=== PATIENT | female | born 1995 | race Two or more races ===

== ENCOUNTER 2019-11-20 02:32 | Inpatient (IN) | payer MEDICAID ==
[2019-11-20] MEDS ORDERED: ceFAZolin 2 GM in Premix Bag 1 BAG IV ONE (02:50)
[2019-11-20] MEDS ORDERED: Sodium Chloride 0.9% 10 ML Syringe FLUSH PRN (02:50)
--- NOTE | 2019-11-20 06:01 | PCM.OPNOTE ---
- General Post-Op/Procedure Note Date of Surgery/Procedure: 11/20/19 Operative Procedure(s): Repeat low transverse Findings: Minimal scar tissue between the rectus and fascia. Minimal scar between uterus and bladder. Baby girl in VTX presentation. Normal appearance of uterus, fallopian tubes, and ovaries. Pre Op Diagnosis: 39 6/7 wks. Prior . Unstable lie Post-Op Diagnosis: Same Anesthesia Technique: Spinal Primary Surgeon: Cori Perrin Secondary Surgeon: Taylor Poole Anesthesia Provider: John Bourgeois Reason Drop Forger Was Necessary: BMI of patient. Speed/safety of procedure Pathology: Cord blood collected. Placenta discarded. Fluid Replacement, Intraop: 1,300 Output, Urine Amount: 100 EBL in mLs: 800 Complications: None Condition: Good Free Text/Narrative:: The risks, benefits, indications, potential complications, and alternatives were explained to the patient and informed consent obtained. After induction of anesthesia, the patient was placed in a supine position and then draped and prepped in the usual sterile manner. A Pfannenstiel incision was made and carried down through the subcutaneous tissue to the fascia. Fascial incision was made and extended transversely. The fascia was from the underlying rectus tissue superiorly and inferiorly. The peritoneum was identified and entered. Peritoneal incision was extended longitudinally. The utero-vesical peritoneal reflection was incised transversely and the bladder flap was bluntly freed from the lower uterine segment. A low transverse uterine incision was made sharply with a scalpel and extended bluntly in a cephalocaudad direction. A baby girl was delivered from a vertex presentation with APGARS as above. After the umbilical cord was clamped and cut cord blood was obtained for evaluation. The placenta was removed intact and appeared normal. The uterus was exteriorized and cleared of clots. The uterine outline, tubes and ovaries appeared normal. The uterine incision was closed with running locked sutures of 0 Vicryl. Hemostasis was obtained with a second imbricating layer of 0 vicryl. The uterus was then placed back into the abdomen. The infracolic gutters were cleared of blood clots. The fascia was then reapproximated with running sutures of 0 Vicryl. The subcutaneous tissue was irrigated with sterile warm normal saline, hemostasis obtained with cautery. This was also closed with a running 0 Vicryl. The skin was reapproximated with running Subcuticular 4-0 monocryl sutures. Instrument, sponge, and needle counts were correct prior the abdominal closure and at the conclusion of the case.
[2019-11-20] MEDS: Lactated Ringers 1,000 ML IV SCH ×2 (06:20→07:21)
[2019-11-20] MEDS ORDERED: Citric Acid/Sodium Citrate Solution 30 ML Cup PO ONE (06:30)
[2019-11-20] MEDS ORDERED: Metoclopramide 10 MG/2 ML SDV IVPUSH ONE (06:30)
[2019-11-20] MEDS ORDERED: Morphine PF 1 MG/ML Amp ONE (07:30)
[2019-11-20] MEDS ORDERED: Oxytocin 10 Units/1 ML SDV ONE ×2 (07:32→08:51)
[2019-11-20] MEDS ORDERED: ceFAZolin 1 GM Vial ONE (07:32)
[2019-11-20] MEDS ORDERED: Oxytocin/Lactated Ringers 10 UNIT/1,000 ML BAG IV SCH (08:15)
[2019-11-20] MEDS ORDERED: diphenhydrAMINE 50 MG/ML SDV IVPUSH PRN (08:40)
[2019-11-20] MEDS ORDERED: Ondansetron 4 MG/2 ML SDV IVPUSH PRN (08:40)
[2019-11-20] MEDS ORDERED: fentaNYL 100 MCG/2 ML SDV IVPUSH PRN (08:40)
[2019-11-20] MEDS ORDERED: Lactated Ringers 1,000 ML ONE (08:50)
[2019-11-20] MEDS ORDERED: Ketorolac 30 MG/ML SDV ONE (09:08)
--- NOTE | 2019-11-20 09:22 | PCM.POSTAN ---
POST ANESTHESIA ASSESSMENT - MENTAL STATUS Mental Status: Alert, Oriented - VITAL SIGNS Vital Signs: Last Vital Signs Temp 97.0 F 11/20/19 09:15 Pulse 68 11/20/19 09:15 Resp 8 L 11/20/19 09:15 BP 97/55 L 11/20/19 09:15 Pulse Ox 99 11/20/19 09:15 - RESPIRATORY Respiratory Status: Respiratory Rate WNL, Airway Patent, O2 Saturation Stable - CARDIOVASCULAR CV Status: Pulse Rate WNL, Blood Pressure Stable - GASTROINTESTINAL GI Status: No Symptoms - PAIN Pain Score: 0 (post SAB) - POST OP HYDRATION Hydration Status: Adequate & Stable
--- NOTE | 2019-11-20 09:36 | PCM.SN.2 ---
- Free Text/Narrative Note: 11/20/19 - 699 Patient with successful ECV on 11/14. Did feel baby move position about a day after ECV. On 11/17 was transverse in office and desired RLTCS. Today feels that baby is again now vertex. Still desires to proceed with RLTCS. No longer desires . Cori Perrin MD
[2019-11-20] MEDS ORDERED: Dextrose 5%-Lactated Ringers 1,000 ML IV SCH (10:28)
[2019-11-20] MEDS ORDERED: Ondansetron 4 MG/2 ML SDV IV PRN (10:28)
[2019-11-20] MEDS ORDERED: Naloxone 0.4 MG/ML SDV IVPUSH PRN (10:28)
[2019-11-20] MEDS ORDERED: Acetaminophen/oxyCODONE 325-5 MG Tab PO PRN (10:28)
[2019-11-20] MEDS: Ketorolac 30 MG/ML SDV IVPUSH SCH ×2 (15:11→21:42)
[2019-11-21] MEDS: Ketorolac 30 MG/ML SDV IVPUSH SCH (03:30)
[2019-11-21] MEDS: Acetaminophen/oxyCODONE 325-5 MG Tab PO PRN ×4 (04:05→21:22)
--- NOTE | 2019-11-21 06:39 | PCM.PNPP ---
- General Info Date of Service: 11/21/19 Functional Status: Reports: Pain Controlled, Tolerating Diet, Ambulating, Urinating - Review of Systems General: Reports: No Symptoms Pulmonary: Reports: No Symptoms Cardiovascular: Reports: No Symptoms Gastrointestinal: Reports: Abdominal Pain (managed with medications ) Genitourinary: Reports: No Symptoms Musculoskeletal: Reports: No Symptoms Neurological: Reports: No Symptoms - Patient Data Vital Signs - Most Recent: Last Vital Signs Temp 36.9 C 11/21/19 03:34 Pulse 73 11/21/19 03:34 Resp 14 11/21/19 03:34 BP 115/83 11/21/19 03:34 Pulse Ox 98 11/21/19 03:34 Weight - Most Recent: 92.079 kg I&O - Last 24 Hours: Intake & Output 11/20/19 11/20/19 11/21/19 14:59 22:59 06:59 Intake Total 4860 1120 Output Total 240 1025 800 Balance 4620 95 -800 Lab Results - Last 24 Hours: Laboratory Results - last 24 hr 11/20/19 11/20/19 11/20/19 Range/Units 06:50 06:50 06:50 WBC 6.65 (3.98-10.04) K/mm3 RBC 3.68 L (3.98-5.22) M/mm3 Hgb 11.2 (11.2-15.7) gm/dl Hct 34.8 (34.1-44.9) % MCV 94.6 (79.4-94.8) fl MCH 30.4 (25.6-32.2) pg MCHC 32.2 (32.2-35.5) g/dl RDW Std Deviation 50.7 H (36.4-46.3) fL Plt Count 195 (182-369) K/mm3 MPV 11.5 (9.4-12.3) fl Neut % (Auto) 60.2 (34.0-71.1) % Lymph % (Auto) 29.6 (19.3-51.7) % Quay % (Auto) 7.7 (4.7-12.5) % Eos % (Auto) 2.0 (0.7-5.8) Baso % (Auto) 0.2 (0.1-1.2) % Neut # (Auto) 4.01 (1.56-6.13) K/mm3 Lymph # (Auto) 1.97 (1.18-3.74) K/mm3 Quay # (Auto) 0.51 H (0.24-0.36) K/mm3 Eos # (Auto) 0.13 (0.04-0.36) K/mm3 Baso # (Auto) 0.01 (0.01-0.08) K/mm3 RPR Non-reactive (NONREACTIVE) Blood Type O POSITIVE Gel Antibody Screen Negative Med Orders - Current: Current Medications Docusate Sodium (Colace) 100 mg PO Q12H PRN PRN Reason: Constipation Ibuprofen (Motrin) 600 mg PO Q6H PRN PRN Reason: mild pain or fever Naloxone HCl (Narcan) 0.1 mg IVPUSH SEECOMMENT PRN PRN Reason: Respiratory Depression Ondansetron HCl (Zofran) 4 mg IV Q8H PRN PRN Reason: Nausea/Vomiting Last Admin: 11/20/19 12:22 Dose: 4 mg Documented by: Oxycodone/Acetaminophen (Percocet 325-5 Mg) 1 tab PO Q4H PRN PRN Reason: Pain (moderate 4-6) Last Admin: 11/21/19 00:01 Dose: 1 tab Documented by: Oxycodone/Acetaminophen (Percocet 325-5 Mg) 2 tab PO Q4H PRN PRN Reason: Pain (severe 7-10) Last Admin: 11/21/19 04:05 Dose: 2 tab Documented by: Discontinued Medications Cefazolin Sodium (Ancef) Confirm Administered Dose 2 gm .ROUTE .STK-MED ONE Stop: 11/20/19 07:33 Citric Acid/Sodium Citrate (Bicitra Solution) 30 ml PO ONETIME ONE Stop: 11/20/19 06:31 Last Admin: 11/20/19 06:34 Dose: 30 ml Documented by: Diphenhydramine HCl (Benadryl) 25 mg IVPUSH Q6H PRN PRN Reason: Pruritis Fentanyl (Sublimaze) 50 mcg IVPUSH Q5M PRN PRN Reason: Pain Oxytocin/Lactated Ringer's (Pitocin In Lr 10 Units/1,000 Ml) 10 unit in 1,000 mls @ 100 mls/hr IV ASDIRECTED [facility] Cefazolin Sodium/Dextrose 2 gm (/ Premix) 50 mls @ 100 mls/hr IV ONETIME ONE Stop: 11/20/19 03:19 Last Admin: 11/20/19 11:38 Dose: Not Given Documented by: Lactated Ringer's (Ringers, Lactated) 1,000 mls @ 125 mls/hr IV ASDIRECTED [facility] Last Admin: 11/20/19 07:21 Dose: 999 mls/hr Documented by: Lactated Ringer's (Ringers, Lactated) Confirm Administered Dose 1,000 mls @ as directed .ROUTE .STK-MED ONE Stop: 11/20/19 08:51 Dextrose/Lactated Ringer's (Dextrose 5%-Lactated Ringers) 1,000 mls @ 125 mls/hr IV ASDIRECTED [facility] Stop: 11/20/19 18:27 Last Admin: 11/20/19 12:18 Dose: 125 mls/hr Documented by: Ketorolac Tromethamine (Toradol) Confirm Administered Dose 30 mg .ROUTE .STK-MED ONE Stop: 11/20/19 09:09 Ketorolac Tromethamine (Toradol) 30 mg IVPUSH Q6H [facility] Stop: 11/21/19 03:01 Last Admin: 11/21/19 03:30 Dose: 30 mg Documented by: Metoclopramide HCl (Reglan) 10 mg IVPUSH ONETIME ONE Stop: 11/20/19 06:31 Last Admin: 11/20/19 06:35 Dose: 10 mg Documented by: Morphine Sulfate (Duramorph Pf) Confirm Administered Dose 1 mg .ROUTE .STK-MED ONE Stop: 11/20/19 07:31 Ondansetron HCl (Zofran) 4 mg IVPUSH ONETIME PRN PRN Reason: Nausea/Vomiting Oxytocin (Pitocin) Confirm Administered Dose 10 unit .ROUTE .STK-MED ONE Stop: 11/20/19 07:33 Oxytocin (Pitocin) Confirm Administered Dose 10 unit .ROUTE .STK-MED ONE Stop: 11/20/19 08:52 Sodium Chloride (Saline Flush) 10 ml FLUSH ASDIRECTED PRN PRN Reason: Keep Vein Open - Infant Interaction Disposition, : [place] in Room with Family Infant Interaction: Holding Feeding: Attempted ; Nursed Fair/Poor Support Person: Significant Other - Recovery Exam Fundal Tone: Firm Fundal Level: 1 Fingerbreadths Below Umbilicus Fundal Placement: Midline Lochia Amount: Scant, Small Lochia Color: Rubra/Red Perineum Description: Intact, Minimal Bruising/Swelling Episiotomy/Laceration: None Bladder Status: Voiding Urinary Elimination: Indwelling Catheter - Exam General: Alert, Oriented, Cooperative Lungs: Clear to Auscultation, Normal Respiratory Effort Cardiovascular: Regular Rate, Regular Rhythm GI/Abdominal Exam: Soft, Tender (appropriate post op) Extremities: Normal Inspection Skin: Warm, Dry, Intact Wound/Incisions: Healing Well, No Drainage - Problem List & Annotations (1) 39 weeks gestation of SNOMED Code(s): 90385810 Code(s): Z3A.39 - 39 WEEKS GESTATION OF Status: Acute Current Visit: Yes (2) History of SNOMED Code(s): 087049418 Code(s): Z98.891 - HISTORY OF UTERINE SCAR FROM PREVIOUS SURGERY Status: Acute Current Visit: Yes (3) Unstable lie SNOMED Code(s): 02942474 Code(s): O32.0XX0 - MATERNAL CARE FOR UNSTABLE LIE, NOT APPLICABLE OR UNSP Status: Acute Current Visit: Yes Qualifiers: Fetus number: single or unspecified fetus Qualified Code(s): O32.0XX0 - Maternal care for unstable lie, not applicable or unspecified (4) S/P repeat low transverse SNOMED Code(s): 032877224, 26780403, 782124250, 640672479, 756783482 Code(s): Z98.891 - HISTORY OF UTERINE SCAR FROM PREVIOUS SURGERY Status: Acute Current Visit: Yes - Problem List Review Problem List Initiated/Reviewed/Updated: Yes - My Orders Last 24 Hours: My Active Orders 11/20/19 Breakfast Regular Diet [DIET] 11/20/19 10:28 Acetaminophen/oxyCODONE [Percocet 325-5 MG] 1 tab PO Q4H PRN Acetaminophen/oxyCODONE [Percocet 325-5 MG] 2 tab PO Q4H PRN Docusate Sodium [Colace] 100 mg PO Q12H PRN Naloxone [Narcan] 0.1 mg IVPUSH SEECOMMENT PRN Ondansetron [Zofran] 4 mg IV Q8H PRN 11/20/19 10:28 Activity as Tolerated [RC] .Routine Antiembolic Devices [RC] PER UNIT ROUTINE Communication Order [RC] PER UNIT ROUTINE Intake and Output [RC] Q4HR May Shower [RC] PER UNIT ROUTINE Notify Provider Intake and Out [RC] ASDIRECTED RT Incentive Spirometry [RC] Q2HWA Vital Signs [RC] Q4HR Assess Lochia [WOMSER] Per Unit Routine Assess Uterine Involution [WOMSER] Per Unit Routine Breast Pump [WOMSER] Per Unit Routine Peripheral IV Discontinue [OM.PC] Routine Sequential Compression Device [OM.PC] Per Unit Routine 11/21/19 05:30 CBC W/O DIFF,HEMOGRAM [HEME] AM 11/21/19 09:00 Ibuprofen [Motrin] 600 mg PO Q6H PRN 11/21/19 09:29 Urinary Catheter Removal [RC] Per Unit Routine - Assessment Assessment:: POD#1 - Plan Plan:: * Routine cares * Breast feeding * Discharge home in 1-2 days
--- NOTE | 2019-11-21 07:23 | PCM48HPAN ---
Post Anesthesia Note - EVALUATION WITHIN 48HRS OF ANESTHETIC Vital Signs in Normal Range: Yes Patient Participated in Evaluation: Yes Respiratory Function Stable: Yes Airway Patent: Yes Cardiovascular Function Stable: Yes Hydration Status Stable: Yes Pain Control Satisfactory: Yes Nausea and Vomiting Control Satisfactory: Yes Mental Status Recovered: Yes Vital Signs: Last Vital Signs Temp 36.9 C 11/21/19 03:34 Pulse 73 11/21/19 03:34 Resp 14 11/21/19 03:34 BP 115/83 11/21/19 03:34 Pulse Ox 98 11/21/19 03:34
[2019-11-21] MEDS: Docusate Sodium 100 MG Cap PO PRN ×2 (09:33→21:22)
[2019-11-21] MEDS: Ibuprofen 600 MG Tab PO PRN ×2 (13:26→21:23)
[2019-11-22] MEDS: Ibuprofen 600 MG Tab PO PRN ×2 (03:25→08:41)
[2019-11-22] MEDS: Acetaminophen/oxyCODONE 325-5 MG Tab PO PRN ×2 (03:25→10:38)
--- NOTE | 2019-11-22 05:34 | PCM.PNPP ---
- General Info Date of Service: 11/22/19 Functional Status: Reports: Pain Controlled, Tolerating Diet, Ambulating, Urinating - Review of Systems General: Reports: No Symptoms Pulmonary: Reports: No Symptoms Cardiovascular: Reports: No Symptoms Gastrointestinal: Reports: Abdominal Pain (managed with medications ) Genitourinary: Reports: No Symptoms Musculoskeletal: Reports: No Symptoms Neurological: Reports: No Symptoms - Patient Data Vital Signs - Most Recent: Last Vital Signs Temp 36.7 C 11/22/19 03:23 Pulse 65 11/22/19 03:23 Resp 14 11/22/19 03:23 BP 107/69 11/22/19 03:23 Pulse Ox 97 11/22/19 03:23 Weight - Most Recent: 92.079 kg I&O - Last 24 Hours: Intake & Output 11/21/19 11/21/19 11/22/19 14:59 22:59 06:59 Intake Total 60 Balance 60 Lab Results - Last 24 Hours: Laboratory Results - last 24 hr 11/21/19 Range/Units 05:30 WBC 9.83 (3.98-10.04) K/mm3 RBC 3.60 L (3.98-5.22) M/mm3 Hgb 10.9 L (11.2-15.7) gm/dl Hct 34.8 (34.1-44.9) % MCV 96.7 H (79.4-94.8) fl MCH 30.3 (25.6-32.2) pg MCHC 31.3 L (32.2-35.5) g/dl RDW Std Deviation 52.4 H (36.4-46.3) fL Plt Count 193 (182-369) K/mm3 MPV 12.1 (9.4-12.3) fl Med Orders - Current: Current Medications Docusate Sodium (Colace) 100 mg PO Q12H PRN PRN Reason: Constipation Last Admin: 11/21/19 21:22 Dose: 100 mg Documented by: Ibuprofen (Motrin) 600 mg PO Q6H PRN PRN Reason: mild pain or fever Last Admin: 11/22/19 03:25 Dose: 600 mg Documented by: Naloxone HCl (Narcan) 0.1 mg IVPUSH SEECOMMENT PRN PRN Reason: Respiratory Depression Ondansetron HCl (Zofran) 4 mg IV Q8H PRN PRN Reason: Nausea/Vomiting Last Admin: 11/20/19 12:22 Dose: 4 mg Documented by: Oxycodone/Acetaminophen (Percocet 325-5 Mg) 1 tab PO Q4H PRN PRN Reason: Pain (moderate 4-6) Last Admin: 11/21/19 00:01 Dose: 1 tab Documented by: Oxycodone/Acetaminophen (Percocet 325-5 Mg) 2 tab PO Q4H PRN PRN Reason: Pain (severe 7-10) Last Admin: 11/22/19 03:25 Dose: 2 tab Documented by: Discontinued Medications Cefazolin Sodium (Ancef) Confirm Administered Dose 2 gm .ROUTE .STK-MED ONE Stop: 11/20/19 07:33 Citric Acid/Sodium Citrate (Bicitra Solution) 30 ml PO ONETIME ONE Stop: 11/20/19 06:31 Last Admin: 11/20/19 06:34 Dose: 30 ml Documented by: Diphenhydramine HCl (Benadryl) 25 mg IVPUSH Q6H PRN PRN Reason: Pruritis Fentanyl (Sublimaze) 50 mcg IVPUSH Q5M PRN PRN Reason: Pain Oxytocin/Lactated Ringer's (Pitocin In Lr 10 Units/1,000 Ml) 10 unit in 1,000 mls @ 100 [facility]ls[facility] Cefazolin Sodium/Dextrose 2 gm (/ Premix) 50 mls @ 100 mls/hr IV ONETIME ONE Stop: 11/20/19 03:19 Last Admin: 11/20/19 11:38 Dose: Not Given Documented by: Lactated Ringer's (Ringers, Lactated) 1,000 mls @ 125 mls/hr IV ASDIRECTED [facility] Last Admin: 11/20/19 07:21 Dose: 999 mls/hr Documented by: Lactated Ringer's (Ringers, Lactated) Confirm Administered Dose 1,000 mls @ as directed .ROUTE .STK-MED ONE Stop: 11/20/19 08:51 Dextrose/Lactated Ringer's (Dextrose 5%-Lactated Ringers) 1,000 mls @ 125 mls[facility] Stop: 11/20/19 18:27 Last Admin: 11/20/19 12:18 Dose: 125 mls/hr Documented by: Ketorolac Tromethamine (Toradol) Confirm Administered Dose 30 mg .ROUTE .STK-MED ONE Stop: 11/20/19 09:09 Ketorolac Tromethamine (Toradol) 30 mg IVPUSH Q6H [facility] Stop: 11/21/19 03:01 Last Admin: 11/21/19 03:30 Dose: 30 mg Documented by: Metoclopramide HCl (Reglan) 10 mg IVPUSH ONETIME ONE Stop: 11/20/19 06:31 Last Admin: 11/20/19 06:35 Dose: 10 mg Documented by: Morphine Sulfate (Duramorph Pf) Confirm Administered Dose 1 mg .ROUTE .STK-MED ONE Stop: 11/20/19 07:31 Ondansetron HCl (Zofran) 4 mg IVPUSH ONETIME PRN PRN Reason: Nausea/Vomiting Oxytocin (Pitocin) Confirm Administered Dose 10 unit .ROUTE .STK-MED ONE Stop: 11/20/19 07:33 Oxytocin (Pitocin) Confirm Administered Dose 10 unit .ROUTE .STK-MED ONE Stop: 11/20/19 08:52 Sodium Chloride (Saline Flush) 10 ml FLUSH ASDIRECTED PRN PRN Reason: Keep Vein Open - Interaction Disposition, : in Room with Family Interaction: Holding Infant Feeding: Attempted ; Nursed Fair/Poor Support Person: Significant Other - Recovery Exam Fundal Tone: Firm Fundal Level: 1 Fingerbreadths Below Umbilicus Fundal Placement: Midline Lochia Amount: Scant, Small Lochia Color: Rubra/Red Perineum Description: Intact, Minimal Bruising/Swelling Episiotomy/Laceration: None Bladder Status: Voiding Urinary Elimination: Indwelling Catheter - Exam General: Alert, Oriented, Cooperative Lungs: Clear to Auscultation, Normal Respiratory Effort Cardiovascular: Regular Rate, Regular Rhythm GI/Abdominal Exam: Soft, Tender (appropriate ) Extremities: Normal Inspection Skin: Warm, Dry, Intact Wound/Incisions: Healing Well, No Drainage - Problem List & Annotations (1) 39 weeks gestation of SNOMED Code(s): 12353086 Code(s): Z3A.39 - 39 WEEKS GESTATION OF Status: Acute Current Visit: Yes (2) History of SNOMED Code(s): 158529548 Code(s): Z98.891 - HISTORY OF UTERINE SCAR FROM PREVIOUS SURGERY Status: Acute Current Visit: Yes (3) Unstable lie SNOMED Code(s): 27268961 Code(s): O32.0XX0 - MATERNAL CARE FOR UNSTABLE LIE, NOT APPLICABLE OR UNSP Status: Acute Current Visit: Yes Qualifiers: Fetus number: single or unspecified fetus Qualified Code(s): O32.0XX0 - Maternal care for unstable lie, not applicable or unspecified (4) S/P repeat low transverse SNOMED Code(s): 888685997, 79321410, 014500452, 549846747, 416398538 Code(s): Z98.891 - HISTORY OF UTERINE SCAR FROM PREVIOUS SURGERY Status: Acute Current Visit: Yes - Problem List Review Problem List Initiated/Reviewed/Updated: Yes - My Orders Last 24 Hours: My Active Orders 11/21/19 09:00 Ibuprofen [Motrin] 600 mg PO Q6H PRN - Assessment Assessment:: POD#2 - Plan Plan:: * Routine cares * Breast feeding * Discharge home today
--- NOTE | 2019-11-22 10:23 | PCM.DCSUM1 ---
Discharge Summary - Discharge Data Discharge Date: 11/22/19 Discharge Disposition: Home, Self-Care 01 Condition: Good - Referral to Home Health Primary Care Physician: Cori Perrin MD - Discharge Diagnosis/Problem(s) (1) 39 weeks gestation of SNOMED Code(s): 19687573 ICD Code: Z3A.39 - 39 WEEKS GESTATION OF Status: Acute Current Visit: Yes (2) History of SNOMED Code(s): 596569182 ICD Code: Z98.891 - HISTORY OF UTERINE SCAR FROM PREVIOUS SURGERY Status: Acute Current Visit: Yes (3) Unstable lie SNOMED Code(s): 04134941 ICD Code: O32.0XX0 - MATERNAL CARE FOR UNSTABLE LIE, NOT APPLICABLE OR UNSP Status: Acute Current Visit: Yes Qualifiers: Fetus number: single or unspecified fetus Qualified Code(s): O32.0XX0 - Maternal care for unstable lie, not applicable or unspecified (4) S/P repeat low transverse SNOMED Code(s): 829301086, 84960183, 442154520, 669945315, 034478661 ICD Code: Z98.891 - HISTORY OF UTERINE SCAR FROM PREVIOUS SURGERY Status: Acute Current Visit: Yes - Patient Summary/Data Operative Procedure(s) Performed: Repeat low transverse Complications: None Consults: None Recommended Follow-up Testing/Procedures: Follow up in 3 weeks for post op / check Hospital Course: 24 y/o at 39 6/7 wks with history of prior and unstable lie who presented for RLTCS. Surgery was uncomplicated. See operative note. did well and was discharged home on PPD#2 - Patient Instructions Diet: Regular Diet as Tolerated Activity: No Lifting Over 10 Pounds Activity, Other: Pelvic rest for 6 weeks Driving: Do Not Drive Showering/Bathing: May Shower, No Tub Bathing/Swimming Wound/Incision Care: Keep Operative Site/Wound Site Clean and Dry Notify Provider of: Fever, Increased Pain, Swelling and Redness, Drainage, Nausea and/or Vomiting - Discharge Plan *PRESCRIPTION DRUG MONITORING PROGRAM REVIEWED*: No *COPY OF PRESCRIPTION DRUG MONITORING REPORT IN PATIENT [place]: No Prescriptions/Med Rec: Acetaminophen/oxyCODONE [Percocet 325-5 MG] 1 - 2 tab PO Q4H PRN #25 tablet PRN Reason: Pain (Severe 7-10) Home Medications: Home Meds Vit/FA/Fe Fumarate/Se [ MTR] 1 tab PO DAILY 11/15/19 [History] Acetaminophen/oxyCODONE [Percocet 325-5 MG] 1 - 2 tab PO Q4H PRN #25 tablet 11/21/19 [Rx] Ibuprofen [Motrin] 600 mg PO Q6H PRN tablet 11/21/19 [Rx] Patient Handouts: Breast Pumping Tips, and Self-Care, Care After Delivery Referrals: Cori Perrin MD [Primary Care Provider] - (3 weeks for check) - Discharge Summary/Plan Comment DC Time >30 min.: No - Patient Data Vitals - Most Recent: Last Vital Signs Temp 36.7 C 11/22/19 03:23 Pulse 65 11/22/19 03:23 Resp 14 11/22/19 03:23 BP 107/69 11/22/19 03:23 Pulse Ox 97 11/22/19 03:23 Weight - Most Recent: 92.079 kg I&O - Last 24 hours: Intake & Output 11/21/19 11/22/19 11/22/19 22:59 06:59 14:59 Intake Total 60 Balance 60 Med Orders - Current: Current Medications Docusate Sodium (Colace) 100 mg PO Q12H PRN PRN Reason: Constipation Last Admin: 11/21/19 21:22 Dose: 100 mg Documented by: Ibuprofen (Motrin) 600 mg PO Q6H PRN PRN Reason: mild pain or fever Last Admin: 11/22/19 08:41 Dose: 600 mg Documented by: Naloxone HCl (Narcan) 0.1 mg IVPUSH SEECOMMENT PRN PRN Reason: Respiratory Depression Ondansetron HCl (Zofran) 4 mg IV Q8H PRN PRN Reason: Nausea/Vomiting Last Admin: 11/20/19 12:22 Dose: 4 mg Documented by: Oxycodone/Acetaminophen (Percocet 325-5 Mg) 1 tab PO Q4H PRN PRN Reason: Pain (moderate 4-6) Last Admin: 11/21/19 00:01 Dose: 1 tab Documented by: Oxycodone/Acetaminophen (Percocet 325-5 Mg) 2 tab PO Q4H PRN PRN Reason: Pain (severe 7-10) Last Admin: 11/22/19 03:25 Dose: 2 tab Documented by: Discontinued Medications Cefazolin Sodium (Ancef) Confirm Administered Dose 2 gm .ROUTE .STK-MED ONE Stop: 11/20/19 07:33 Citric Acid/Sodium Citrate (Bicitra Solution) 30 ml PO ONETIME ONE Stop: 11/20/19 06:31 Last Admin: 11/20/19 06:34 Dose: 30 ml Documented by: Diphenhydramine HCl (Benadryl) 25 mg IVPUSH Q6H PRN PRN Reason: Pruritis Fentanyl (Sublimaze) 50 mcg IVPUSH Q5M PRN PRN Reason: Pain Oxytocin/Lactated Ringer's (Pitocin In Lr 10 Units/1,000 Ml) 10 unit in 1,000 mls @ 100 mls/hr IV ASDIRECTED [facility] Cefazolin Sodium/Dextrose 2 gm (/ Premix) 50 mls @ 100 mls/hr IV ONETIME ONE Stop: 11/20/19 03:19 Last Admin: 11/20/19 11:38 Dose: Not Given Documented by: Lactated Ringer's (Ringers, Lactated) 1,000 mls @ 125 [facility]ls[facility] Last Admin: 11/20/19 07:21 Dose: 999 mls/hr Documented by: Lactated Ringer's (Ringers, Lactated) Confirm Administered Dose 1,000 mls @ as directed .ROUTE .[facility] ONE Stop: 11/20/19 08:51 Dextrose/Lactated Ringer's (Dextrose 5%-Lactated Ringers) 1,000 mls @ 125 mls/hr IV ASDIRECTED [facility] Stop: 11/20/19 18:27 Last Admin: 11/20/19 12:18 Dose: 125 mls/hr Documented by: Ketorolac Tromethamine (Toradol) Confirm Administered Dose 30 mg .ROUTE .STK-MED ONE Stop: 11/20/19 09:09 Ketorolac Tromethamine (Toradol) 30 mg IVPUSH Q6H [facility] Stop: 11/21/19 03:01 Last Admin: 11/21/19 03:30 Dose: 30 mg Documented by: Metoclopramide HCl (Reglan) 10 mg IVPUSH ONETIME ONE Stop: 11/20/19 06:31 Last Admin: 11/20/19 06:35 Dose: 10 mg Documented by: Morphine Sulfate (Duramorph Pf) Confirm Administered Dose 1 mg .ROUTE .STK-MED ONE Stop: 11/20/19 07:31 Ondansetron HCl (Zofran) 4 mg IVPUSH ONETIME PRN PRN Reason: Nausea/Vomiting Oxytocin (Pitocin) Confirm Administered Dose 10 unit .ROUTE .STK-MED ONE Stop: 11/20/19 07:33 Oxytocin (Pitocin) Confirm Administered Dose 10 unit .ROUTE .STK-MED ONE Stop: 11/20/19 08:52 Sodium Chloride (Saline Flush) 10 ml FLUSH ASDIRECTED PRN PRN Reason: Keep Vein Open
[2019-11-22] MEDS: Docusate Sodium 100 MG Cap PO PRN (10:37)
== END 2019-11-22 11:25 | disposition home or self-care (01) | DRG 788 ==
LOC: JD.OB 05:22
PROVIDERS: ADMIT Obstetrics & Gynecology; ATTEND Obstetrics & Gynecology
PROC: 10D00Z1 Extraction of Products of Conception, Low, Open Approach (ICD-10-PCS; principal; 2019-11-20)
DX: O34.211 Maternal care for low transverse scar from previous cesarean delivery (principal); O32.0XX0 Maternal care for unstable lie, not applicable or unspecified; Z3A.39 39 weeks gestation of pregnancy; Z37.0 Single live birth
CPT/HCPCS: 01961; 36415; 59025; 85025; 85027; 86592; 86850; 86900; 86901; 94762; A9270-GY; J0690; J1885; J2274; J2405; J2590; J2765; J7120; J7121